=== PATIENT | female | born 1935 | race Caucasian/White ===

== ENCOUNTER 2018-09-13 16:04 | Emergency (ER) | payer MEDICARE, OTHER ==
[2018-09-13] MEDS: KETOROLAC 30 MG INJ IM (16:30)
== END 2018-09-13 17:05 | disposition home or self-care (01) ==
LOC: FTE 16:04
DX: M54.5 Low back pain (principal); I10 Essential (primary) hypertension; J45.909 Unspecified asthma, uncomplicated; Z96.641 Presence of right artificial hip joint; Z79.82 Long term (current) use of aspirin
CPT/HCPCS: 96372; 99284-25